=== PATIENT | male | born 1950 | race Caucasian/White ===

== ENCOUNTER 2017-06-23 17:45 | Emergency (ER) | payer OTHER ==
[~2017-06-23] VITALS: Ht 182.9 cm; Wt 70.3 kg
[2017-06-23 19:44] VITALS: BP 130/83
== END 2017-06-23 19:44 | disposition home or self-care (01) ==
LOC: EME 17:45
DX: S27.819A Unspecified injury of esophagus (thoracic part), initial encounter (principal); J02.9 Acute pharyngitis, unspecified; X58.XXXA Exposure to other specified factors, initial encounter; Y93.89 Activity, other specified; F17.200 Nicotine dependence, unspecified, uncomplicated
CPT/HCPCS: 70360; 71020; 99281; 99283